=== PATIENT | female | born 1950 | race Native Hawaiian/Other Pacific Islander ===

== ENCOUNTER → 2018-03-06 | Outpatient (CLI) | payer MEDICARE, OTHER ==
--- NOTE | 2018-03-06 10:00 | US ---
EXAMINATION TYPE: US abdomen limited DATE OF EXAM: 03/06/2018 COMPARISON: Prior CT CLINICAL HISTORY: Fatty Liver K76.0. Patient states she was diagnosed with fatty liver in 2008 and th is US was to assess if her liver is still fatty, no symptoms EXAM MEASUREMENTS: Liver Length: 16.0 cm Gallbladder Wall: 0.2 cm CBD: 0.6 cm Right Kidney: 10.0 x 4.1 x 4.0 cm Pancreas: wnl Liver: wnl . No sonographic evidence of hepatic steatosis. The previously seen caudate lobe hepatic hemangioma is not visualized on today's examination. Gallbladder: small fundal fold seen Evidence for sonographic White's sign: no CBD: wnl Right Kidney: wnl IMPRESSION: 1. No sonographic evidence of hepatic steatosis. 2. Nonvisualization of the previously noted caudate lobe hepatic hemangioma
== END | disposition home or self-care (01) ==
LOC: RADUSWWP 09:00
PROVIDERS: ATTEND Family Medicine
DX: K76.0 Fatty (change of) liver, not elsewhere classified (principal)
CPT/HCPCS: 76705